=== PATIENT | female | born 1945 | race Caucasian/White ===

== ENCOUNTER 2023-08-26 09:01 | Outpatient (AMB) | payer OTHER, MEDICAID, SELFPAY ==
--- NOTE | 2023-08-26 09:04 | MHC.PC.OV ---
Vital Signs 08/26/23 09:12 Height 5 ft 4 in Weight 176 lb BMI 30.2 BP 112/66 Blood Pressure Location Lt brachial Position Sitting Pulse 84 Pulse Source Pulse Oximeter Pulse Oximetry (%) 96 Oxygen Delivery Method Room Air Intake Visit Reasons: Annual PE/Secondary covers Intake Note: Pt is here today for PE. Allergies No Known Allergies Allergy (Verified 08/26/23 09:14) Medication List - Last Reconciled 08/26/23 by Teresita Marino MD acetaminophen ER 650 mg PO Q12H PRN amlodipine 10 mg PO DAILY apixaban 5 mg PO BID blood pressure test kit-medium As directed calcium citrate-vitamin D3 315 mg-6.25 mcg (250 unit) 1 tab PO DAILY carvedilol 25 mg PO BID cholecalciferol (vitamin D3) 50 mcg PO DAILY clonazepam 0.5 mg PO BID PRN diclofenac sodium 1% 2 grams topical QID docusate sodium (Colace) 100 mg PO BID escitalopram oxalate 20 mg PO DAILY lisinopril 20 mg PO BID meloxicam 15 mg PO DAILY mirabegron ER 25 mg PO BEDTIME pantoprazole 40 mg PO DAILY rosuvastatin 20 mg PO DAILY zolpidem 10 mg PO BEDTIME Tobacco use date assessed: 08/26/23 Fall risk assessment: No Falls in past year Last assessed Fall Risk: 08/26/23 Dental Screening Dental Screen Date: 08/26/23 Did you have a dental visit in the last 12 months?: No Did you have a dental problem in the last 6 months where you did not have access to dental care?: No Was dental information given to patient?: Patient declined HPI Annual PE/Secondary covers HPI Details Patient presents for PE. She had right hip replacement surgery 2 months ago and recovered well. Patient has been ambulating with a cane. [facility] Medical History (Updated 08/26/23 @ 15:09 by Teresita Marino MD) Cataract Annual physical exam Vitamin D deficiency Hyperlipidemia HTN (hypertension) Nephrolithiasis Anxiety and depression Paroxysmal A-fib Osteoarthritis Osteopenia Breast cancer Surgical History (Updated 08/26/23 @ 09:22 by ALTAGRACIA Griffith) History of hip replacement, total History of esophagogastroduodenoscopy (EGD) H/O colonoscopy Family History Father No problems noted. Mother Colon cancer Social History Housing: House Alcohol intake: current Alcohol intake frequency: a few times a month Patient Tobacco Use Status: Never used Tobacco e-Cigarette/Vaping Use: Never Used service: No Current occupational status: retired Cognitive needs: No Hearing needs: No Vision needs: No Questionnaire PHQ-9 Over the last 2 weeks, how often have you been bothered by any of the following problems? 59769 - PHQ-9 Billing: Patient declined-do not bill Source: Developed by Nydia Peñaloza, Rodger Gorman and colleagues, with an educational jessica from [employer]. Thrive Questionnaire Date Thrive assessed: 08/26/23 What is your living situation today?: I choose not to answer this question Within the past 12 months, did the food you bought not last and you didn't have the money to get more?: I choose not to answer this question Do you have trouble paying for medicines?: I choose not to answer this question Do you have trouble getting transportation to medical appointments?: I choose not to answer this question Do you have trouble paying your heating and electricity bill?: I choose not to answer this question Do you have trouble taking care of your child, family member or friend?: I choose not to answer this question Do you have trouble with day-to-day activities such as bathing, preparing meals, shopping, managing finances, etc.?: I choose not to answer this question Are you currently unemployed and looking for a job?: I choose not to answer this question Are you interested in more education?: I choose not to answer this question Currently or been in a relationship where the following occur: I choose not to answer this question THRIVE Score: 0 AUDIT C Alcohol Use Questionnaire (AUDIT-C) 1. How often do you have a drink containing alcohol?: Never 3. How often do you have six or more drinks on one occasion?: Never Total Score: 0 KATHERYN-7 AMB Questionnaire KATHERYN-7 Date KATHERYN - 7 assessed: 08/26/23 Source: Developed by Drs. James Anthony, Nydia LiuRodger and colleagues, with an educational jessica from [employer]. KATHERYN-7 Assessment Billing KATHERYN-7 Assessment Tool: pt declined-do not bill Review of Systems Const All systems reviewed & are unremarkable except as noted in HPI and below Reports no additional complaints Eyes Reports no additional complaints ENT Reports no additional complaints Card Reports no additional complaints Resp Reports no additional complaints GI Reports no additional complaints Reports no additional complaints Musc Reports no additional complaints Physical exam (Primary Care) Vital Signs: Last Vital Signs Pulse 84 08/26/23 09:12 BP 112/66 08/26/23 09:12 Pulse Ox 96 08/26/23 09:12 Oxygen Delivery Method Room Air 08/26/23 09:12 BMI result Body Mass Index 30.2 Tobacco/Smoking Status: Tobacco use Status Tobacco use date assessed 08/26/23 08/26/23 09:23 Patient Tobacco Use Status Never used Tobacco 08/26/23 09:23 e-Cigarette/Vaping Use Never Used 08/26/23 09:05 Thrive Assessment: Date of Thrive Assessment Date Thrive assessed 08/26/23 08/26/23 09:23 Currently or been in a relationship where the following occur: I choose not to answer this question Const General: no acute distress HENMT Head: Yes normal to inspection General nose exam: Normal external nose present Face and sinus: Yes normal facial exam Throat: Yes posterior oropharynx normal Eyes General: appearance normal, both eyes and all related structures Neck Neck: Yes no lymphadenopathy and Yes supple Resp Effort & Inspection: normal respiratory effort Auscultation: clear to auscultation bilaterally Cardio Rhythm: regular rhythm Heart sounds: S1 normal heart sound present and S2 normal heart sound present GI Inspection: Yes normal to inspection Palpation (GI): Soft to palpation Percussion: Yes normal to percussion Auscultation: normal bowel sounds Extrem Other: 2+ no pitting edema bilaterally Assessment and Plan Assessment & Plan (1) Edema: Comment: Due to venous insufficiency Code(s): R60.9 - Edema, unspecified Plan: Patient was advised to wear compression knee-highs (2) Hyperlipidemia: Code(s): E78.5 - Hyperlipidemia, unspecified Plan: Continue statin (3) Paroxysmal A-fib: Comment: f/u Dr. Lomax [facility] Code(s): I48.0 - Paroxysmal atrial fibrillation Plan: Continue current medications and is anticoagulated on Eliquis (4) HTN (hypertension): Code(s): I10 - Essential (primary) hypertension Plan: Continue current medications (5) Annual physical exam: Code(s): Z00.00 - Encounter for general adult medical examination without abnormal findings Plan: Well-balanced diet regular physical activity weight loss discussed with the patient (6) Vitamin D deficiency: Code(s): E55.9 - Vitamin D deficiency, unspecified Medications: New compr.stocking,knee,long,large 10-20 mmHg compression 12 ea 0RF R60.9 - Edema, unspecified Refilled amlodipine 10 mg PO DAILY 90 tabs 3RF cholecalciferol (vitamin D3) 50 mcg PO DAILY 90 caps 3RF lisinopril 20 mg PO BID 180 tabs 3RF meloxicam 15 mg PO DAILY 30 tabs 3RF mirabegron ER 25 mg PO BEDTIME 90 tabs 3RF rosuvastatin 20 mg PO DAILY 90 tabs 3RF Discontinued pantoprazole Discontinued Reason: Doctor's Order 40 mg PO DAILY 90 tabs 3RF Coding Level of Care Code Est Pt Prev Care >65y(22926) Diagnoses Edema R60.9 Hyperlipidemia E78.5 Paroxysmal A-fib I48.0 HTN (hypertension) I10 Annual physical exam Z00.00 Vitamin D deficiency E55.9
[2023-08-26 09:12] VITALS: BP 112/66; PULSE 84; O2SAT 96; BMI 30.2
== END 2023-08-26 10:02 | disposition home or self-care (01) ==
PROVIDERS: Visit Provider Internal Medicine
DX: R60.9 Edema, unspecified (principal); E78.5 Hyperlipidemia, unspecified; I48.0 Paroxysmal atrial fibrillation; I10 Essential (primary) hypertension; Z00.00 Encounter for general adult medical examination without abnormal findings; E55.9 Vitamin D deficiency, unspecified
CPT/HCPCS: 99397

== ENCOUNTER 2023-11-16 08:49 | Outpatient (AMB) | payer OTHER, SELFPAY ==
[2023-11-16 09:00] VITALS: BP 130/76; PULSE 52; O2SAT 97; BMI 31.2
--- NOTE | 2023-11-16 09:00 | MHC.PC.OV ---
Vital Signs 11/16/23 09:00 Height 5 ft 4 in Weight 182 lb BMI 31.2 BP 130/76 Blood Pressure Location Lt brachial Position Sitting Pulse 52 Pulse Source Pulse Oximeter Pulse Oximetry (%) 97 Oxygen Delivery Method Room Air Intake Visit Reasons: discuss Wegovy Intake Note: Pt is here today for a follow up visit. Allergies No Known Allergies Allergy (Verified 11/16/23 09:02) Medication List - Last Reconciled 11/16/23 by Teresita Marino MD acetaminophen ER 650 mg PO Q12H PRN amlodipine 10 mg PO DAILY apixaban 5 mg PO BID blood pressure test kit-medium As directed calcium citrate-vitamin D3 315 mg-5 mcg (200 unit) 1 tab PO DAILY carvedilol 25 mg PO BID cholecalciferol (vitamin D3) 50 mcg PO DAILY clonazepam 0.5 mg PO BID PRN compr.stocking,knee,long,large 10-20 mmHg compression diclofenac sodium 1% 2 grams topical QID docusate sodium (Colace) 100 mg PO BID escitalopram oxalate 20 mg PO DAILY lisinopril 20 mg PO BID meloxicam 15 mg PO DAILY mirabegron ER 25 mg PO BEDTIME rosuvastatin 20 mg PO DAILY zolpidem 10 mg PO BEDTIME Tobacco use date assessed: 11/16/23 Dental Screening Dental Screen Date: 08/26/23 HPI discuss Wegovy HPI Details Pt presents for follow-up of HTN, hyperlipidemia chronic AFib. Patient complains of worsening lower extremity swelling for the last month. She denies PND orthopnea but reports episodes of wheezing when laying down in bed. She is echocardiogram scheduled by cardiology. Patient has been trying to lose weight eating smaller meals and being more physically active for the last month without significant results. She would like to try Wegovy to facilitate weight loss. [facility] Medical History (Updated 11/16/23 @ 09:26 by Teresita Marino MD) Cataract Annual physical exam Vitamin D deficiency Hyperlipidemia HTN (hypertension) Nephrolithiasis Anxiety and depression Paroxysmal A-fib Osteoarthritis Osteopenia Breast cancer Surgical History History of hip replacement, total History of esophagogastroduodenoscopy (EGD) H/O colonoscopy Family History Father No problems noted. Mother Colon cancer Social History Housing: House Alcohol intake: current Alcohol intake frequency: a few times a month Patient Tobacco Use Status: Never used Tobacco e-Cigarette/Vaping Use: Never Used service: No Current occupational status: retired Cognitive needs: No Hearing needs: No Vision needs: No Questionnaire Thrive Questionnaire Date Thrive assessed: 08/26/23 KATHERYN-7 AMB Questionnaire KATHERYN-7 Date KATHERYN - 7 assessed: 08/26/23 Source: Developed by Drs. James Anthony, Nydia Liu, Rodger Gorman and colleagues, with an educational jessica from [employer]. Review of Systems Const All systems reviewed & are unremarkable except as noted in HPI and below Eyes Reports no additional complaints ENT Reports no additional complaints Card Reports no additional complaints Resp Reports no additional complaints GI Reports no additional complaints Reports no additional complaints Physical exam (Primary Care) Vital Signs: Last Vital Signs Pulse 52 11/16/23 09:00 BP 130/76 11/16/23 09:00 Pulse Ox 97 11/16/23 09:00 Oxygen Delivery Method Room Air 11/16/23 09:00 BMI result Body Mass Index 31.2 Tobacco/Smoking Status: Tobacco use Status Tobacco use date assessed 11/16/23 11/16/23 09:05 Patient Tobacco Use Status Never used Tobacco 11/16/23 09:05 e-Cigarette/Vaping Use Never Used 11/16/23 09:05 Thrive Assessment: Date of Thrive Assessment Date Thrive assessed 08/26/23 11/16/23 09:05 Const General: no acute distress HENMT Ears: hearing grossly normal bilaterally Eyes General: appearance normal, both eyes and all related structures Neck Neck: Yes supple Resp Effort & Inspection: normal respiratory effort Auscultation: clear to auscultation bilaterally Cardio Rhythm: abnormal rhythm regularly irregular Heart sounds: S1 normal heart sound present and S2 normal heart sound present GI Inspection: Yes normal to inspection Palpation (GI): Soft to palpation Extrem Other: 3+ pitting edema bilaterally Assessment and Plan Assessment & Plan (1) Morbid obesity: Code(s): E66.01 - Morbid (severe) obesity due to excess calories Plan: Continue decreasing caloric intake increasing physical activity start Wegovy. Side effects discussed with the patient follow-up in 3 months (2) HTN (hypertension): Code(s): I10 - Essential (primary) hypertension Plan: Continue current medications (3) Edema: Comment: Due to venous insufficiency Code(s): R60.9 - Edema, unspecified Plan: Start Lasix 20 mg daily check BMP today and in 2 weeks. Patient was advised to elevate lower extremities and wear compression knee-highs Orders: Orders Comprehensive Met. Panel Today I10 - Essential (primary) hypertension, R60.9 - Edema, unspecified Basic Metabolic Panel 2 Weeks I10 - Essential (primary) hypertension Medications: New furosemide (Lasix) 20 mg PO DAILY 90 tabs 0RF semaglutide (weight loss) (Wegovy) 0.25 mg (0.5 mL) subcut QWEEK 2 mL 2RF Refilled compr.stocking,knee,long,large 10-20 mmHg compression 12 ea 0RF R60.9 - Edema, unspecified compr.stocking,knee,long,large 10-20 mmHg compression 12 ea 0RF R60.9 - Edema, unspecified Coding Level of Care Code Est Pt Level 4 (56841) Diagnoses Morbid obesity E66.01 HTN (hypertension) I10 Edema R60.9
== END 2023-11-16 09:37 | disposition home or self-care (01) ==
PROVIDERS: PCP Internal Medicine; Visit Provider Internal Medicine
DX: I10 Essential (primary) hypertension (principal); E66.01 Morbid (severe) obesity due to excess calories; R60.9 Edema, unspecified; Z68.31 Body mass index [BMI] 31.0-31.9, adult
CPT/HCPCS: 99214

== ENCOUNTER 2023-11-16 09:34 | Outpatient (REF) | payer OTHER, SELFPAY ==
[2023-11-16 12:28] LABS: Alanine Aminotransferase 18 U/L (0-31); Albumin Level 4.2 g/dL (3.5-5.0); Alkaline Phosphatase 104 U/L (39-117); Anion Gap 13 (12-20); Aspartate Amino Transferase 26 U/L (5-31); Bilirubin Total 0.9 mg/dL (0.0-1.0); Blood Urea Nitrogen 9 mg/dL (9-16); Calcium 9.3 mg/dL (8.4-10.2); Carbon Dioxide 29 mmol/L (22-29); Chloride 105 mmol/L (96-108); Estimated Glomerular Filt Rate > 60; Glucose Random 119 mg/dL (60-115); Potassium 3.6 mmol/L (3.3-5.1); Sodium 143 mmol/L (135-145); Total Protein 7.5 g/dL (6.5-8.0)
== END 2023-11-16 09:35 | disposition home or self-care (01) ==
LOC: HO.HMGCLDS 09:34
PROVIDERS: PCP Internal Medicine; Visit Provider Internal Medicine
DX: I10 Essential (primary) hypertension (principal); R60.9 Edema, unspecified
CPT/HCPCS: 36415; 80053

== ENCOUNTER 2024-02-23 10:57 | Outpatient (AMB) | payer OTHER, SELFPAY ==
[2024-02-23 11:13] VITALS: BP 108/78; PULSE 83; O2SAT 98; BMI 29.7
--- NOTE | 2024-02-23 11:13 | A.OFFPC_ITS ---
Vital Signs 02/23/24 11:13 Height 5 ft 4 in Weight 173 lb BMI 29.7 BP 108/78 Blood Pressure Location Lt brachial Position Sitting Pulse 83 Pulse Source Pulse Oximeter Pulse Oximetry (%) 98 Oxygen Delivery Method Room Air Intake Visit Reasons: Labs follow up Intake Note: Pt is here today for a follow up visit on labs and weight loss. Allergies No Known Allergies Allergy (Verified 02/23/24 11:14) Medication List - Last Reconciled 02/23/24 by Teresita Marino MD acetaminophen ER 650 mg PO Q12H PRN amlodipine 10 mg PO DAILY apixaban 5 mg PO BID blood pressure test kit-medium As directed calcium citrate-vitamin D3 315 mg-5 mcg (200 unit) 1 tab PO DAILY carvedilol 25 mg PO BID cholecalciferol (vitamin D3) 50 mcg PO DAILY clonazepam 0.5 mg PO BID PRN compr.stocking,knee,long,large 10-20 mmHg compression diclofenac sodium 1% 2 grams topical QID docusate sodium (Colace) 100 mg PO BID escitalopram oxalate 20 mg PO DAILY furosemide (Lasix) 20 mg PO DAILY lisinopril 20 mg PO BID meloxicam 15 mg PO DAILY mirabegron ER 25 mg PO BEDTIME rosuvastatin 20 mg PO DAILY semaglutide (weight loss) (Wegovy) 0.25 mg (0.5 mL) subcut QWEEK semaglutide (weight loss) (Wegovy) 0.5 mg (0.5 mL) subcut QWEEK zolpidem 10 mg PO BEDTIME Tobacco use date assessed: 02/23/24 Fall risk assessment: No Falls in past year Last assessed Fall Risk: 02/23/24 Dental Screening Dental Screen Date: 08/26/23 HPI Labs follow up HPI Details Pt presents for f/u HTN, hyperlipid, paroxysmal AFib chronic anxiety. She complains of persistent lower extremity swelling not improvement with compression stockings or 20 mg of furosemide. Patient is planning to start Wegovy 0.25 for the 1st month then increase to 0.5 mg to facilitate weight loss. [facility] Medical History Cataract Annual physical exam Vitamin D deficiency Hyperlipidemia HTN (hypertension) Nephrolithiasis Anxiety and depression Paroxysmal A-fib Osteoarthritis Osteopenia Breast cancer Surgical History History of hip replacement, total History of esophagogastroduodenoscopy (EGD) H/O colonoscopy Family History Father No problems noted. Mother Colon cancer Social History Housing: House Alcohol intake: current Alcohol intake frequency: a few times a month Patient Tobacco Use Status: Never used Tobacco e-Cigarette/Vaping Use: Never Used service: No Current occupational status: retired Cognitive needs: No Hearing needs: No Vision needs: No Questionnaire PHQ-9 Over the last 2 weeks, how often have you been bothered by any of the following problems? 1. Little interest or pleasure in doing things: several days 2. Feeling down, depressed, or hopeless: several days 3. Trouble falling or staying asleep, or sleeping too much: several days 4. Feeling tired or having little energy: several days 5. Poor appetite or overeating: not at all 6. Feeling bad about yourself - or that you are a failure or have let yourself or your family down: not at all 7. Trouble concentrating on things, such as reading the newspaper or watching television: several days 8. Moving or speaking so slowly that other people could have noticed. Or the opposite - being so fidgety or restless that you have been moving around a lot more than usual: not at all 9. Thoughts that you would be better off or of hurting yourself in some way: not at all Total score: 5 Depression Screening Interpretation: Negative Depression Screening Done: Yes 08007 - PHQ-9 Billing: Yes Source: Developed by Drs. James Anthony, Nydia Liu, Rodger Gorman and colleagues, with an educational jessica from [employer]. Thrive Questionnaire Date Thrive assessed: 02/22/24 I am a: Patient What is your living situation today?: I have a steady place to live Within the past 12 months, did the food you bought not last and you didn't have the money to get more?: Sometimes True Within the past 12 months, did you worry whether your food would run out before you got money to buy more?: Sometimes True Do you have trouble paying for medicines?: No Do you have trouble getting transportation to medical appointments?: No Do you have trouble paying your heating and electricity bill?: No Do you have trouble taking care of your child, family member or friend?: I choose not to answer this question Do you have trouble with day-to-day activities such as bathing, preparing meals, shopping, managing finances, etc.?: Yes Are you currently unemployed and looking for a job?: No Are you interested in more education?: No Please select the resources that you would like help with: Food Currently or been in a relationship where the following occur: No concerns reported THRIVE Score: 2 AUDIT C Alcohol Use Questionnaire (AUDIT-C) 1. How often do you have a drink containing alcohol?: 2-4 times a month 2. How many drinks containing alcohol do you have on a typical day when you are drinking?: 1 or 2 3. How often do you have six or more drinks on one occasion?: Never Total Score: 2 KATHERYN-7 AMB Questionnaire KATHERYN-7 Date KATHERYN - 7 assessed: 02/23/24 Feeling nervous, anxious, or on edge: 2 = More than half the days Not being able to stop or control worryin = More than half the days Worrying too much about different things: 1 = Several days Trouble relaxin = More than half the days Being so restless that it is hard to sit still: 2 = More than half the days Becoming easily annoyed or irritable: 2 = More than half the days Feeling afraid as if something awful might happen: 1 = Several days Total KATHERYN-7 score (0-4 normal; 5-9 mild; 10-14 moderate; 15-21 severe): 12 Source: Developed by Drs. James Anthony, Nydia Liu, Rodger Gorman and colleagues, with an educational jessica from [employer]. KATHERYN-7 Assessment Billing KATHERYN-7 Assessment Tool: KATHERYN-7 Assessment 97442 Review of Systems Const All systems reviewed & are unremarkable except as noted in HPI and below Card Reports no additional complaints Resp Reports no additional complaints GI Reports no additional complaints Reports no additional complaints Physical exam (Primary Care) Vital Signs: Last Vital Signs Pulse 83 02/23/24 11:13 BP 108/78 02/23/24 11:13 Pulse Ox 98 02/23/24 11:13 Oxygen Delivery Method Room Air 02/23/24 11:13 BMI result Body Mass Index 29.7 Tobacco/Smoking Status: Tobacco use Status Tobacco use date assessed 02/23/24 02/23/24 11:16 Patient Tobacco Use Status Never used Tobacco 02/23/24 11:16 e-Cigarette/Vaping Use Never Used 02/23/24 11:14 PHQ-9: PHQ-9 Score PHQ-9: Total score 5 02/23/24 12:06 Depression Screening Interpretation: Negative Thrive Assessment: Date of Thrive Assessment Date Thrive assessed 02/22/24 02/23/24 11:14 Currently or been in a relationship where the following occur: No concerns reported Const General: no acute distress HENMT Head: Yes normal to inspection Throat: Yes posterior oropharynx normal Resp Effort & Inspection: normal respiratory effort Auscultation: clear to auscultation bilaterally Cardio Rhythm: regular rhythm Heart sounds: S1 normal heart sound present and S2 normal heart sound present GI Inspection: Yes normal to inspection Palpation (GI): Soft to palpation Percussion: Yes normal to percussion Auscultation: normal bowel sounds Extrem Other: 3+ nonpitting edema bilaterally Coding Level of Care Code Est Pt Level 4 (28303) Diagnoses Edema R60.9 Paroxysmal A-fib I48.0 HTN (hypertension) I10 Hyperlipidemia E78.5 Morbid obesity E66.01 Additional Codes KATHERYN-7 Assessment Billing - KATHERYN-7 Assessment Tool: KATHERYN-7 Assessment 48220 ([id number]) Assessment & Plan Assessment & Plan (1) Edema: Comment: Due to venous insufficiency Code(s): R60.9 - Edema, unspecified Category: Medical Plan: Decrease amlodipine to 5 mg and start spironolactone 50 mg a day. Check basic metabolic panel in 2 weeks (2) Paroxysmal A-fib: Comment: f/u Dr. Lomax [facility] Code(s): I48.0 - Paroxysmal atrial fibrillation Category: Medical Plan: Continue Eliquis and carvedilol for rate control follow-up with Cardiology (3) HTN (hypertension): Code(s): I10 - Essential (primary) hypertension Category: Medical Plan: See above (4) Hyperlipidemia: Code(s): E78.5 - Hyperlipidemia, unspecified Category: Medical Plan: Continue statin (5) Morbid obesity: Code(s): E66.01 - Morbid (severe) obesity due to excess calories Category: Medical Plan: Patient will continue decrease caloric intake increase physical activity and will start Wegovy 0.25 mg for the 1st month then increase to 0.5 mg weekly Orders: Orders Basic Metabolic Panel 2 Weeks R60.9 - Edema, unspecified Comprehensive Watson. Panel Fast 4 Months E78.5 - Hyperlipidemia, unspecified, I10 - Essential (primary) hypertension, I48.0 - Paroxysmal atrial fibrillation, R60.9 - Edema, unspecified Hemoglobin A1c 4 Months E78.5 - Hyperlipidemia, unspecified, I10 - Essential (primary) hypertension, I48.0 - Paroxysmal atrial fibrillation, R60.9 - Edema, unspecified Complete Blood Count Auto Diff 4 Months E78.5 - Hyperlipidemia, unspecified, I10 - Essential (primary) hypertension, I48.0 - Paroxysmal atrial fibrillation, R60.9 - Edema, unspecified Lipid Panel 4 Months E78.5 - Hyperlipidemia, unspecified, I10 - Essential (primary) hypertension, I48.0 - Paroxysmal atrial fibrillation, R60.9 - Edema, unspecified Medications: New semaglutide (weight loss) (Wegovy) administer weeks 5 through 8 of therapy 0.5 mg (0.5 mL) subcut QWEEK 2 mL 0RF spironolactone 50 mg PO DAILY 90 tabs 0RF semaglutide (weight loss) (Wegovy) administer weeks 5 through 8 of therapy 0.5 mg (0.5 mL) subcut QWEEK 2 mL 2RF amlodipine 5 mg PO DAILY 90 tabs 0RF
== END 2024-02-23 12:21 | disposition home or self-care (01) ==
PROVIDERS: PCP Internal Medicine; Visit Provider Internal Medicine
DX: R60.9 Edema, unspecified (principal); I48.0 Paroxysmal atrial fibrillation; E66.01 Morbid (severe) obesity due to excess calories; Z68.29 Body mass index [BMI] 29.0-29.9, adult; I10 Essential (primary) hypertension; E78.5 Hyperlipidemia, unspecified

== ENCOUNTER → 2024-02-23 10:57 | Outpatient (BNVA) | payer OTHER, SELFPAY | PROVIDERS: PCP Internal Medicine; Visit Provider Internal Medicine | DX: R60.9 Edema, unspecified (principal); I48.0 Paroxysmal atrial fibrillation; I10 Essential (primary) hypertension; E78.5 Hyperlipidemia, unspecified; E66.01 Morbid (severe) obesity due to excess calories | CPT/HCPCS: 96127; 99212 ==